=== PATIENT | male | born 1965 | race Caucasian/White ===

== ENCOUNTER 2017-07-13 14:23 | Emergency (ER) | payer OTHER ==
[~2017-07-13] VITALS: Ht 172.7 cm; Wt 61.8 kg
[~2017-07-13 14:23] MED LIST: ATARAX,VISTARIL50 MG PO; INDOCIN50 MG PO; KEFLEX500 MG PO
[2017-07-13 15:00] LABS: BASOPHIL (%) 0.8 % (0-1); BASOPHIL COUNT 0.1 K/uL (0-0.1); EOSINOPHIL (%) 3.7 % (0-5); EOSINOPHIL COUNT 0.2 K/uL (0-0.3); HEMATOCRIT 37.6 % (38.0-50.0); HEMOGLOBIN 12.8 G/DL (12.5-16.6); IMMATURE GRANULOCYTE (%) 0.2 % (0.0-0.7); LYMPHOCYTE (%) 44.4 % (15-42); LYMPHOCYTE COUNT 2.8 K/uL (1.0-2.8); MCH 32.2 PG (29.0-34.0); MCV 94.7 FL (86-99); MONOCYTE (%) 6.9 % (3-12); MONOCYTE COUNT 0.4 K/uL (0-0.8); NEUTROPHIL COUNT 2.7 K/uL (1.8-6.4); PLATELET COUNT 272 K/uL (156-360); RBC DIS.WIDTH-CV 13.6 % (11.8-14.6); RBC DIS.WIDTH-SD 47.4 % (39-53); RED BLOOD COUNT 3.97 M/uL (4.00-5.50); WHITE BLOOD COUNT 6.2 K/uL (4.1-10.2)
[2017-07-13 15:09] LABS: CHLORIDE 105 mEq/L (99-109); POTASSIUM 4.1 mEq/L (3.7-5.4); SODIUM 137 mEq/L (136-147)
[2017-07-13 15:11] LABS: GLUCOSE 95 mg/dL (70-99)
[2017-07-13 15:12] LABS: TOTAL PROTEIN 6.3 g/dL (6.4-8.3)
[2017-07-13 15:13] LABS: TOTAL BILIRUBIN 0.4 mg/dL (0.0-1.0)
[2017-07-13 15:14] LABS: SERUM ETHYL ALCOHOL < 10 mg/dL
[2017-07-13 15:15] LABS: ALKALINE PHOSPHATASE 66 IU/L (3-129); CREATININE 0.9 mg/dL (0.6-1.3); GFR ESTIMATE (CALCULATED) > 59 mL/min/ (58.99-99999)
[2017-07-13 15:16] LABS: UREA NITROGEN (BUN) 15 mg/dL (9-23)
[2017-07-13 15:17] LABS: AST (GOT) 19 IU/L (2-34)
[2017-07-13 15:18] LABS: ALT (GPT) 18 IU/L (3-49)
[2017-07-13 18:17] VITALS: BP 110/75
== END 2017-07-13 18:53 | disposition home or self-care (01) ==
LOC: EME 14:23
PROVIDERS: Emergency Medicine
DX: T50.991A Poisoning by other drugs, medicaments and biological substances, accidental (unintentional), initial encounter (principal); S00.411A Abrasion of right ear, initial encounter; I10 Essential (primary) hypertension; F41.9 Anxiety disorder, unspecified; F32.9 Major depressive disorder, single episode, unspecified
CPT/HCPCS: 70450; 80053; 85025; 93005; G0480